=== PATIENT | male | born 1995 | race Caucasian/White ===

== ENCOUNTER 2017-03-18 01:38 | Emergency (ER) | payer BC ==
[~2017-03-18] VITALS: Ht 172.7 cm; Wt 55.6 kg
[~2017-03-18 01:38] MED LIST: ALBUTEROL SULF8.5 GM IH; MOTRIN800 MG PO; NORCO 5/3251 TABLET PO; OXCARBAZEPINE150 MG PO; OXCARBAZEPINE600 MG PO; TORADOL10 MG PO; TRILEPTAL600 MG PO; ULTRAM50 MG PO
[2017-03-18 01:41] VITALS: BP 131/105
[2017-03-19] MEDS ORDERED: FLEXERIL10 MG PO (01:37)
[2017-03-19] MEDS ORDERED: NAPROXEN500 MG PO (01:37)
== END 2017-03-18 04:36 | disposition left against medical advice (07) ==
LOC: EME 01:38
DX: S49.91XA Unspecified injury of right shoulder and upper arm, initial encounter (principal); W20.8XXA Other cause of strike by thrown, projected or falling object, initial encounter; Y92.69 Other specified industrial and construction area as the place of occurrence of the external cause; Y99.0 Civilian activity done for income or pay; Z53.21 Procedure and treatment not carried out due to patient leaving prior to being seen by health care provider

== ENCOUNTER 2017-03-19 00:05 | Emergency (ER) | payer OTHER ==
[~2017-03-19] VITALS: Ht 172.7 cm; Wt 55.3 kg
[2017-03-19] MEDS ORDERED: NAPROXEN500 MG PO (01:37)
[2017-03-19] MEDS ORDERED: FLEXERIL10 MG PO (01:37)
[2017-03-19 01:44] VITALS: BP 137/85
== END 2017-03-19 01:46 | disposition home or self-care (01) ==
LOC: EME 00:05
DX: S40.011A Contusion of right shoulder, initial encounter (principal); W20.8XXA Other cause of strike by thrown, projected or falling object, initial encounter; Y99.0 Civilian activity done for income or pay; F17.200 Nicotine dependence, unspecified, uncomplicated
CPT/HCPCS: 73030; 99281; 99283

== ENCOUNTER 2017-03-25 15:36 | Emergency (ER) | payer OTHER, BC ==
[~2017-03-25] VITALS: Ht 175.3 cm; Wt 53.1 kg
[~2017-03-25 15:36] MED LIST changes: +FLEXERIL10 MG PO; +NAPROXEN500 MG PO
[2017-03-25] MEDS ORDERED: NAPROSYN500 MG PO (16:21)
[2017-03-25 16:42] VITALS: BP 134/86
== END 2017-03-25 16:43 | disposition home or self-care (01) ==
LOC: EME 15:36
DX: S46.911A Strain of unspecified muscle, fascia and tendon at shoulder and upper arm level, right arm, initial encounter (principal); W20.8XXA Other cause of strike by thrown, projected or falling object, initial encounter; Y92.69 Other specified industrial and construction area as the place of occurrence of the external cause; Y99.0 Civilian activity done for income or pay; Z72.0 Tobacco use
CPT/HCPCS: 99281; 99283